=== PATIENT | female | born 1990 | race Caucasian/White ===

== ENCOUNTER 2024-10-08 12:06 | Outpatient (CLI) | payer BC, SELFPAY ==
--- NOTE | 2024-10-08 12:15 | CRLHL7_ITS ---
For Patients: As a result of the Cures Act, medical imaging exams and procedure reports are released immediately into your electronic medical record. You may view this report before your referring provider. If you have questions, please contact your health care provider. INDICATION: First trimester scan, establish dates. COMPARISON: None. TECHNIQUE: Real-time hidalgo-scale imaging of the pelvis was performed. FINDINGS: Sonographic imaging demonstrates a single living intrauterine gestation. The embryo demonstrates a regular cardiac rate measuring 167 beats per minute. The embryo`s crown-rump length measurement of 1.7 cm corresponds to a gestational age of 8 weeks 1 day with a sonographic due date of 05/19/2025. There is a normal-appearing yolk sac. There are no gross abnormalities noted within the embryo at this early state of development. The gestational sac has a normal appearance. There is no evidence of a perigestational hemorrhage. The amount of fluid within the sac appears appropriate for gestational age. The cervix is closed. The myometrium appears normal. Simple left ovarian cyst measures 3.6 x 2.3 x 3.2 cm. Corpus luteal cyst right ovary. There are no suspicious fluid collections noted in the cul-de-sac. IMPRESSION: Single living intrauterine with sonographic gestational age 8 weeks 1 day and sonographic due date 05/19/2025. Dictated by Kvng Jolly MD @ 10/09/2024 7:03:42 AM (Electronically Signed)
== END 2024-10-08 12:07 | disposition home or self-care (01) ==
PROVIDERS: Visit Provider Midwife
DX: O99.281 Endocrine, nutritional and metabolic diseases complicating pregnancy, first trimester (principal); Z3A.08 8 weeks gestation of pregnancy
CPT/HCPCS: 76817

== ENCOUNTER 2024-10-08 13:35 | Outpatient (CLI) | payer BC, SELFPAY | END 2024-10-08 13:36 | disposition home or self-care (01) | PROVIDERS: Visit Provider Midwife | DX: Z34.91 Encounter for supervision of normal pregnancy, unspecified, first trimester (principal); O99.281 Endocrine, nutritional and metabolic diseases complicating pregnancy, first trimester; Z3A.08 8 weeks gestation of pregnancy | CPT/HCPCS: 83021; 84439; 84443; 84481; 86762; 86787; 86803; 86850; 86900; 86901; 87086 ==

== ENCOUNTER 2024-11-18 12:58 | Outpatient (REF) | payer BC, SELFPAY ==
[2024-11-18 21:30] LABS: Free T4 Free Thyroxine* 1.25 ng/dL (0.70-1.85)
[2024-11-20 08:37] LABS: Free T3 3.2 pg/mL (2.5-4.3)
[2024-11-20 09:04] LABS: TSH Receptor Antibody <1.10 IU/L (<=1.75)
== END 2024-11-18 12:59 | disposition home or self-care (01) ==
LOC: NPINS 12:58
PROVIDERS: Visit Provider Student in an Organized Health Care Education/Training Program
DX: E05.90 Thyrotoxicosis, unspecified without thyrotoxic crisis or storm (principal)
CPT/HCPCS: 83520; 84436; 84439; 84443; 84481

== ENCOUNTER 2024-12-30 09:33 | Outpatient (CLI) | payer BC, SELFPAY ==
[2024-12-30 11:54] LABS: Free T4 Free Thyroxine* 0.99 ng/dL (0.70-1.85)
[2025-01-01 02:41] LABS: TSH Receptor Antibody <1.10 IU/L (<=1.75)
[2025-01-01 02:49] LABS: Free T3 2.9 pg/mL (2.5-4.3)
== END 2024-12-30 09:34 | disposition home or self-care (01) ==
LOC: NPINS 09:34
PROVIDERS: Visit Provider Student in an Organized Health Care Education/Training Program
DX: E05.90 Thyrotoxicosis, unspecified without thyrotoxic crisis or storm (principal)
CPT/HCPCS: 83520; 84436; 84439; 84443; 84481

== ENCOUNTER 2025-01-02 09:03 | Outpatient (CLI) | payer BC, SELFPAY | END 2025-01-02 09:04 | disposition home or self-care (01) | LOC: US 09:06 | PROVIDERS: Visit Provider Obstetrics & Gynecology | DX: Z34.92 Encounter for supervision of normal pregnancy, unspecified, second trimester (principal); Z3A.20 20 weeks gestation of pregnancy | CPT/HCPCS: 76805 ==

== ENCOUNTER 2025-01-02 10:58 | Outpatient (CLI) | payer BC, SELFPAY | END 2025-01-02 10:59 | disposition home or self-care (01) | PROVIDERS: Visit Provider Obstetrics & Gynecology | DX: Z34.92 Encounter for supervision of normal pregnancy, unspecified, second trimester (principal); Z3A.20 20 weeks gestation of pregnancy | CPT/HCPCS: 82565; 82570; 84156; 84450; 84460; 84520 ==

== ENCOUNTER 2025-01-06 07:42 | Outpatient (CLI) | payer BC, SELFPAY | END 2025-01-06 07:43 | disposition home or self-care (01) | LOC: NFLDREF 23:56 | PROVIDERS: Visit Provider Obstetrics & Gynecology | DX: R80.9 Proteinuria, unspecified (principal) | CPT/HCPCS: 82570; 84156 ==

== ENCOUNTER 2025-01-30 12:52 | Outpatient (CLI) | payer BC, SELFPAY ==
--- NOTE | 2025-01-30 13:00 | CRLHL7_ITS ---
For Patients: As a result of the Century Cures Act, medical imaging exams and procedure reports are released immediately into your electronic medical record. You may view this report before your referring provider. If you have questions, please contact your health care provider. INDICATION: Suboptimal heart views on survey TECHNIQUE: Conventional transabdominal two-dimensional grayscale ultrasound examination COMPARISON: survey of 01/02/2025 FINDINGS: There is a living fetus with gestational age of 24 weeks 2 days by LMP and 25 weeks 3 days by today`s measurements. EDC based on LMP is 05/20/2025. BPD: 6.2 cm, 25 weeks 1 day Head circumference: 23.2 cm, 25 weeks 2 days Abdominal circumference: 20.3 cm, 25 weeks 3 days Femur length: 4.6 cm, 25 weeks 3 days HC/AC: 1.11 The weight is estimated at 800 grams, the 87th percentile. The heart rate is measured at 149 beats per minute and the rhythm appears regular. The heart and ventricular outflow tracts are visualized today and appears to be within normal limits. The amniotic fluid volume is within normal limits with single deepest pocket of 7.1 cm. The placenta is posterior with no evidence of previa. IMPRESSION: 1. Living fetus with gestational age of 24 weeks 2 days by LMP and 25 weeks 3 days by today`s measurements. EDC based on LMP is 05/20/2025. 2. heart and ventricular outflow tracts visualized and appear to be within normal limits. Dictated by Pillo Govea MD @ 02/01/2025 9:18:02 AM (Electronically Signed)
== END 2025-01-30 12:53 | disposition home or self-care (01) ==
LOC: US 12:53
PROVIDERS: Visit Provider Obstetrics & Gynecology
DX: O28.3 Abnormal ultrasonic finding on antenatal screening of mother (principal); Z3A.24 24 weeks gestation of pregnancy
CPT/HCPCS: 76816

== ENCOUNTER 2025-02-10 09:28 | Outpatient (CLI) | payer BC, SELFPAY ==
[2025-02-10 11:39] LABS: Free T4 Free Thyroxine* 0.92 ng/dL (0.70-1.85)
[2025-02-11 12:55] LABS: TSH Receptor Antibody <1.10 IU/L (<=1.75)
[2025-02-11 12:57] LABS: Free T3 2.4 pg/mL (2.5-4.3)
== END 2025-02-10 09:29 | disposition home or self-care (01) ==
LOC: NPINS 09:29
PROVIDERS: Visit Provider Student in an Organized Health Care Education/Training Program
DX: E05.90 Thyrotoxicosis, unspecified without thyrotoxic crisis or storm (principal)
CPT/HCPCS: 83520; 84436; 84439; 84443; 84481

== ENCOUNTER 2025-02-14 13:51 | Outpatient (CLI) | payer BC, SELFPAY ==
[2025-02-14] VITALS (15 sets, daily range): BP systolic 114–157; BP diastolic 68–88; PULSE 94–121; RESP 18; TEMP 36.9; O2SAT 97–98
[2025-02-14 14:19] LABS: Hematocrit 34.3 % (33.0-51.0); Hemoglobin* 11.5 gm/dL (12.0-16.0); Mean Corpuscular HGB Conc 34 gm/dL (32-36); Mean Corpuscular Hemoglobin 31 pg (26-34); Mean Corpuscular Volume 92 fL (80-100); Platelet Count* 303 K/uL (140-440); Red Blood Count 3.73 m/uL (4.00-5.20); White Blood Count* 10.97 K/uL (4.50-11.00)
[2025-02-14 14:20] LABS: Slide Review Reflex No
[2025-02-14 14:32] LABS: Alanine Aminotransferase* 18 U/L (4-35); Aspartate Amino Transferase* 25 U/L (12-35); Blood Urea Nitrogen* 12 mg/dL (5-24); Creatinine* 0.5 mg/dL (0.5-1.5); Estimated Glomerular Filt Rate 126 ml/min
--- NOTE | 2025-02-14 16:13 | PC.OBNST ---
NST Note NST Note Start: 02/14/25 13:59 Freq: ONCE Status: Active Protocol: Document 02/14/25 16:10 MMB (Rec: 02/14/25 16:11 MMB [id number]) NST Note 1 Para (# of births) 0 EDC 05/20/25 Gestational Age In Weeks & Days 26 Weeks & 3 Days Patient Presented with Complaint(s) of Other Other Complaints High BP at home. Reactive Yes Appropriate for Gestational Age Yes RN Mellissa Champagne Date 02/14/25 Reactive Yes Appropriate for Gestational Age Yes RN Maldonado Myers RN Date 02/14/25 OB NST charge Yes Complete NST Note via Write Note Yes The provider's electronic signature indicates the NST is reactive/appropriate for gestational age. *Note to provider: If an addendum is required, open the patient's chart and click on the note under the Nurse/Allied Health tab.
--- NOTE | 2025-02-14 16:43 | P.OBO_ITS ---
OB Outpatient HPI History of Present Illness Date Seen: 02/14/25 History of Present Illness: 34 year old at 26 3/7 weeks gestation by LMP, SADA 05/20/25 , presents with concerns about elevated blood pressure at home. Patient has been monitoring blood pressures at home and called clinic with concerns of significantly elevated blood pressures with systolics in the 150s and stating that she was told that if monitoring at home started to be abnormal that we would start her on oral antihypertensive medication. Patient was asked to come in for evaluation. Patient today denies headaches, vision changes, pain in her upper abdomen. Denies persistent tachycardia, SOB, chest pain. Baby moving naturally: Yes Bleeding: No Contractions: No Leaking fluid: No Discharge: No Heartburn: No Back pain: No Meds Home Medications and Allergies Home Medications ?Medication ?Instructions ?Recorded ?Confirmed ?Type ascorbic acid (vitamin C) 500 mg mg PO BID 10/08/24 01/30/25 History capsule inositol 650 mg tablet mg PO 10/08/24 01/30/25 History lecithin, soy 400 mg capsule 1,200 mg PO QDAY 10/08/24 02/14/25 History omega 2-bfe-gtr-fish oil 900 cap PO 10/08/24 01/30/25 History mg-1,400 mg capsule,delayed release (Fish Oil) vitamin#30 30 mg iron-10 1 cap PO DAILY 10/08/24 02/14/25 History mg iron-folic acid 1 mg-omg3 capsule selenium 200 mcg capsule 200 mcg PO QDAY 10/08/24 02/14/25 History aspirin 81 mg tablet,delayed 81 mg PO QDAY 01/14/25 02/14/25 History release magnesium glycinate 100 mg (as 100 mg PO BID 01/14/25 02/14/25 History glycinate) tablet Diego Prather 02/14/25 History calcium citrate 1,000 mg tablet 1,000 mg PO DAILY 02/14/25 02/14/25 History Allergies Allergy/AdvReac Type Severity Reaction Status Date / Time gluten Allergy Intermediate Unknown Verified 01/30/25 13:52 [facility] Medical History Profound vision impairment, 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 - Blindness, one eye, unspecified eye (ICD-10) Graves disease ?E05.00 - Thyrotoxicosis with diffuse goiter without thyrotoxic crisis or st orm (ICD-10) Hyperthyroidism ?E05.90 - Thyrotoxicosis, unspecified without thyrotoxic crisis or storm (ICD-10) Surgical History H/O eye surgery ?Z98.890 - Other specified postprocedural states (ICD-10) Family History Father Bladder cancer Mother Hypothyroid Social History What is your current living situation?: I presently have a place to live Problems where you live: no known problems In the past 12 months, utilities in danger of being shut off: no How hard is it for you to pay for the very basics like food, housing, medical care, and heating: not very hard In the past 12 mos, have been you worried that your food would run out before you had money to buy more?: never true In the past 12 mos, the food you bought just didn't last and you didn't have money to buy more?: never true Are you following a diet prescribed by a doctor: Yes Are you following a special diet: Yes Do you want help finding or keeping work or a job: I do not need or want help Smoking Status: Never smoker How often does anyone, including family, friends and others, physically hurt you : never How often does anyone, including family, friends and others, insult or talk down to you: never How often does anyone, including family, friends and others, threaten you with harm: never How often does anyone, including family, friends and others, scream or curse at you: never History History 1 Elective abortions Para 0 Spontaneous abortions Hx # Term Pregnancies Ectopic pregnancies Hx # Pregnancies Multiple births Number of Living Children 0 OB - H&P: Exam Physical Exam Vital signs: Temp Pulse Resp BP Pulse Ox 98.5 F 94 18 130/77 98 02/14/25 13:45 02/14/25 15:32 02/14/25 13:45 02/14/25 15:32 02/14/25 14:13 Narrative: VITAL SIGNS: As noted above. GENERAL APPEARANCE: Alert, cooperative female in no acute distress. MOOD & AFFECT: Normal. HEART: Regular rate and rhythm without murmurs. LUNGS: Lungs are clear to auscultation bilaterally. No crackles, wheezes, or rhonchi. ABDOMEN: Gravid, non tender. EXTREMITIES: Nonedematous. Well perfused. Nontender. NEURO: Intact. Labs Labs Laboratory Tests 02/14/25 Range/Units 14:11 WBC 10.97 (4.50-11.00) K/uL RBC 3.73 L (4.00-5.20) m/uL Hgb 11.5 L (12.0-16.0) gm/dL Hct 34.3 (33.0-51.0) % MCV 92 (80-100) fL MCH 31 (26-34) pg MCHC 34 (32-36) gm/dL Plt Count 303 (140-440) K/uL BUN 12 (5-24) mg/dL Creatinine 0.5 (0.5-1.5) mg/dL Estimated GFR 126 ml/min AST 25 (12-35) U/L ALT 18 (4-35) U/L Assessment and Plan Assessment and plan (1) Chronic hypertension affecting : Status: Acute Plan Initial blood pressure 157/88, 143/77 that eventually started to decrease after rest. After review of chart patient with elevated BP prior to 20 weeks. Patient also with history of Grave's that has been established to be in remission, has been monitoring thyroid function tests and these have remained stable. Endocrinology has not recommended medication therapy based of her lab values. Patient completed thyroid labs most recently on 02/10/25. Patient also with evidence of proteinuria at the beginning of . In the setting of stable thyroid function, evidence of elevated BP prior to 20 weeks and early diagnosis of proteinuria I favor a diagnosis of CHTN. Preeclampsia labs completed today and normal, monitoring also appropriate for gestational age. Discussed the difference between CHTN, GHTN and preeclampsia diagnosis. Patient is not in agreement with a CHTN diagnosis as she routinely would monitor her BPs at home- prior to and those would always be normal. She does feel most comfortable if she can have medication for blood pressure at home, just in case monitoring shows severely elevated blood pressures again. I did plan to prescribe medication as I had reviewed her chart prior to talking to patient and believed that CHTN would be the most appropriate diagnosis. No matter the diagnosis, we discussed the importance of continued monitoring of BPs at home, at least twice a day. Discussed that even if she is taking medication if her blood pressures are more than 150 systolics, or 100 diastolics that she needs to come in for evaluation of health and lab work. Discussed that lab work is collected to rule out any end organ damage. I did order Nifedipine ER 30mg daily. Discussed most common side effects. I thought of ordering a beta mary as she has been noted to be tachycardic, but it seems like this is not persistent and states that her usual baseline HR at home is in the 80s. I recommend for her to be seen next week to follow up on BP and make a final plan for continued monitoring and delivery.
== END 2025-02-14 16:00 | disposition home or self-care (01) ==
LOC: OB OUT 13:52 → OB 13:53
PROVIDERS: Visit Provider Obstetrics & Gynecology
DX: O10.912 Unspecified pre-existing hypertension complicating pregnancy, second trimester (principal); Z3A.26 26 weeks gestation of pregnancy
CPT/HCPCS: 36415; 59025; 82565; 84450; 84460; 84520; 85027; G0463

== ENCOUNTER 2025-02-20 09:24 | Outpatient (CLI) | payer BC, SELFPAY | END 2025-02-20 09:25 | disposition home or self-care (01) | LOC: NFLDREF 02-24 00:11 | PROVIDERS: Visit Provider Internal Medicine Nephrology | DX: O13.2 Gestational [pregnancy-induced] hypertension without significant proteinuria, second trimester (principal); Z3A.36 36 weeks gestation of pregnancy | CPT/HCPCS: 82570; 84156 ==

== ENCOUNTER 2025-02-26 09:20 | Outpatient (CLI) | payer BC, SELFPAY | END 2025-02-26 09:21 | disposition home or self-care (01) | LOC: NFLDREF 02-27 22:41 | PROVIDERS: Visit Provider Obstetrics & Gynecology | DX: O99.283 Endocrine, nutritional and metabolic diseases complicating pregnancy, third trimester (principal); E05.90 Thyrotoxicosis, unspecified without thyrotoxic crisis or storm; Z3A.28 28 weeks gestation of pregnancy | CPT/HCPCS: 82570; 84156; 84439; 84443; 84481; 86592 ==

== ENCOUNTER 2025-03-26 12:07 | Outpatient (CLI) | payer BC, SELFPAY | END 2025-03-26 12:08 | disposition home or self-care (01) | LOC: NFLDREF 04-02 03:15 | PROVIDERS: Visit Provider Obstetrics & Gynecology | DX: O10.913 Unspecified pre-existing hypertension complicating pregnancy, third trimester (principal); O12.13 Gestational proteinuria, third trimester; Z3A.32 32 weeks gestation of pregnancy | CPT/HCPCS: 82565; 82570; 84156; 84450; 84460; 84520 ==

== ENCOUNTER 2025-03-26 12:12 | Outpatient (CLI) | payer BC, SELFPAY ==
--- NOTE | 2025-03-26 12:15 | CRLHL7_ITS ---
For Patients: As a result of the Century Cures Act, medical imaging exams and procedure reports are released immediately into your electronic medical record. You may view this report before your referring provider. If you have questions, please contact your health care provider. 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 COMPARISON: 01/30/2025, 01/02/2025, 10/08/2024. TECHNIQUE: Ultrasound OB pelvis transabdominal. Real-time grayscale imaging of the pelvis was performed.? FINDINGS: SADA by LMP: 05/20/2025. GA: 32 weeks 1 day. Gestation: Single. CERVIX: Not visualized. POSITIONING: Vertex. AMNIOTIC FLUID: 6.2 cm SDP. PLACENTA: Technique: TA. Placenta Location: Posterior. DOPPLERS: Heart Rate: 152 bpm. BIOPHYSICAL PROFILE: Gross Body Movements: 2 Tone: 2 Respiratory Activity: 2 Amniotic Fluid SDP: 2 Total Score: 8/8 BIOMETRY: BPD: 8.1 cm, 32 weeks 3 days. 49.6% HC: 30.5 cm, 33 weeks 6 days. 61.4% AC: 28.5 cm, 32 weeks 4 days. 60.0% FL: 6.5 cm, 33 weeks 2 days. 701.% FL/AC Ratio: 22.68% HC/AC Ratio: 1.07. EFW: 2072 grams, 4 lb 9 oz. Age by this US: 33 weeks 0 days. SADA by this US: 05/14/2025. Percentile by SADA: 63.9% IMPRESSION: 1. Normal biophysical profile score of 8/8. 2. Sonographic gestational age 33 weeks 0 days and sonographic due date 05/14/2025. Sonographic age 6 days ahead of the clinical age. 3. Estimated weight 64th percentile. Abdominal circumference 60th percentile. Kvng Jolly M.D. Diagnostic Radiologist [email or web address] Transcribed: 1:25 pm DW/Dictated by: Kvng Jolly MD @ 03/26/2025 1:16:00 PM (Electronically Signed)
== END 2025-03-26 12:13 | disposition home or self-care (01) ==
LOC: US 12:13
PROVIDERS: Visit Provider Obstetrics & Gynecology
DX: O26.893 Other specified pregnancy related conditions, third trimester (principal); D71 Functional disorders of polymorphonuclear neutrophils; Z3A.32 32 weeks gestation of pregnancy; O10.919 Unspecified pre-existing hypertension complicating pregnancy, unspecified trimester; O12.10 Gestational proteinuria, unspecified trimester
CPT/HCPCS: 76816; 76819

== ENCOUNTER 2025-04-03 10:03 | Outpatient (CLI) | payer BC, SELFPAY | END 2025-04-03 10:04 | disposition home or self-care (01) | LOC: NFLDREF 04-06 14:19 | PROVIDERS: Visit Provider Obstetrics & Gynecology | DX: O10.913 Unspecified pre-existing hypertension complicating pregnancy, third trimester (principal); O12.13 Gestational proteinuria, third trimester; Z3A.33 33 weeks gestation of pregnancy | CPT/HCPCS: 82565; 82570; 84156; 84450; 84460; 84520 ==

== ENCOUNTER 2025-04-03 10:10 | Outpatient (CLI) | payer BC, SELFPAY ==
--- NOTE | 2025-04-03 10:15 | CRLHL7_ITS ---
For Patients: As a result of the Cures Act, medical imaging exams and procedure reports are released immediately into your electronic medical record. You may view this report before your referring provider. If you have questions, please contact your health care provider. OB ULTRASOUND BIOPHYSICAL PROFILE, 04/03/2025 CLINICAL HISTORY: Chronic HTN. COMPARISON: 03/26/2025, 01/30/2025, 01/02/2025. TECHNIQUE: Real time hidalgo scale imaging of the fetus was performed. Transabdominal imaging performed. FINDINGS: LMP: 08/13/2024. SADA by LMP: 05/20/2025. GA: 33 weeks 2 days. GESTATION: Single. CERVIX: Not visualized. AMNIOTIC FLUID: 4.7 cm SDP. BIOPHYSICAL PROFILE: Gross Body Movements: 2 Tone: 2 Respiratory Activity: 2 Amniotic Fluid: 2 Total Score: 8/8 PLACENTA: Technique: TA. Placenta Position: Posterior DOPPLERS: Heart Rate: 147 bpm. IMPRESSION: Normal biophysical profile score 8/8. Kvng Jolly M.D. Diagnostic Radiologist [email or web address] Transcribed: 11:02 am DW/Dictated by: Kvng Jolly MD @ 04/03/2025 10:54:00 AM (Electronically Signed)
== END 2025-04-03 10:11 | disposition home or self-care (01) ==
LOC: US 10:11
PROVIDERS: Visit Provider Obstetrics & Gynecology
DX: O10.913 Unspecified pre-existing hypertension complicating pregnancy, third trimester (principal); Z3A.33 33 weeks gestation of pregnancy
CPT/HCPCS: 76819

== ENCOUNTER 2025-04-03 11:19 | Outpatient (CLI) | payer BC, SELFPAY ==
[2025-04-03] VITALS (9 sets, daily range): BP systolic 121–162; BP diastolic 63–81; PULSE 103–129; O2SAT 97
--- NOTE | 2025-04-03 14:22 | PC.OBNST ---
NST Note NST Note Start: 04/03/25 11:27 Freq: ONCE Status: Active Protocol: Document 04/03/25 14:21 BAW (Rec: 04/03/25 14:22 BAW No Response) NST Note 1 Para (# of births) 0 EDC 05/20/25 Gestational Age In 33 Weeks & 2 Days Weeks & Days High Risk Factors High Blood Pressure - Preexisting Patient Presented Other with Complaint(s) of Other Complaints Elevated BP in clinic Reactive Yes Appropriate for Yes Gestational Age LEAH Moody RN Date 04/03/25 Reactive Yes Appropriate for Yes Gestational Age LEAH Bar RN Date 04/03/25 OB NST charge Yes Complete NST Note Yes via Write Note The provider's electronic signature indicates the NST is reactive/appropriate for gestational age. *Note to provider: If an addendum is required, open the patient's chart and click on the note under the Nurse/Allied Health tab.
== END 2025-04-03 13:39 | disposition home or self-care (01) ==
LOC: OB CLI 11:21 → OB 11:23
PROVIDERS: Visit Provider Obstetrics & Gynecology
DX: O10.913 Unspecified pre-existing hypertension complicating pregnancy, third trimester (principal); Z3A.33 33 weeks gestation of pregnancy; O12.10 Gestational proteinuria, unspecified trimester
CPT/HCPCS: 59025; G0463

== ENCOUNTER 2025-04-10 07:11 | Outpatient (CLI) | payer BC, SELFPAY ==
--- NOTE | 2025-04-10 07:15 | CRLHL7_ITS ---
For Patients: As a result of the Century Cures Act, medical imaging exams and procedure reports are released immediately into your electronic medical record. You may view this report before your referring provider. If you have questions, please contact your health care provider. INDICATION: Chronic hypertension TECHNIQUE: Ultrasound OB pelvis transabdominal. Real-time hidalgo-scale imaging of the fetus was performed with color Doppler and spectral Doppler analysis of the umbilical artery without stress testing. COMPARISON: 04/03/2025 FINDINGS: Sonographic imaging demonstrates a single living intrauterine gestation. Fetus demonstrates a regular cardiac rate of 163 beats per minute. Fetus has a cephalic orientation. The placenta lies posterior. Amniotic fluid volume appears normal with a MVP of 6.5 cm. breathing movements, motion, and tone were all observed. IMPRESSION: Single viable intrauterine with a biophysical profile 06/13. Dictated by Beck Nash MD @ 04/10/2025 9:53:29 AM (Electronically Signed)
== END 2025-04-10 07:12 | disposition home or self-care (01) ==
LOC: US 07:12
PROVIDERS: Visit Provider Obstetrics & Gynecology
DX: O10.919 Unspecified pre-existing hypertension complicating pregnancy, unspecified trimester (principal)
CPT/HCPCS: 76819

== ENCOUNTER 2025-04-10 07:56 | Outpatient (CLI) | payer BC, SELFPAY | END 2025-04-10 07:57 | disposition home or self-care (01) | LOC: NFLDREF 04-12 04:03 | PROVIDERS: Visit Provider Obstetrics & Gynecology | DX: O10.913 Unspecified pre-existing hypertension complicating pregnancy, third trimester (principal); O12.13 Gestational proteinuria, third trimester; Z3A.34 34 weeks gestation of pregnancy | CPT/HCPCS: 82565; 82570; 84156; 84450; 84460; 84520 ==

== ENCOUNTER 2025-04-17 12:12 | Outpatient (CLI) | payer BC, SELFPAY ==
--- NOTE | 2025-04-17 12:15 | CRLHL7_ITS ---
For Patients: As a result of the Century Cures Act, medical imaging exams and procedure reports are released immediately into your electronic medical record. You may view this report before your referring provider. If you have questions, please contact your health care provider. INDICATION: Chronic hypertension TECHNIQUE: Ultrasound OB pelvis transabdominal. Real-time hidalgo-scale imaging of the fetus was performed with color Doppler and spectral Doppler analysis of the umbilical artery without stress testing. COMPARISON: 04/10/2025 FINDINGS: Sonographic imaging demonstrates a single living intrauterine gestation. Fetus demonstrates a regular cardiac rate of 152 beats per minute. Fetus has a cephalic orientation. The placenta lies posterior. Amniotic fluid volume appears normal with a MVP of 4.7 cm. breathing movements, motion, and tone were all observed. IMPRESSION: Single viable intrauterine with a biophysical profile 06/13. Dictated by Beck Nash MD @ 04/17/2025 1:23:49 PM (Electronically Signed)
== END 2025-04-17 12:13 | disposition home or self-care (01) ==
LOC: US 12:12
PROVIDERS: Visit Provider Obstetrics & Gynecology
DX: O10.919 Unspecified pre-existing hypertension complicating pregnancy, unspecified trimester (principal)
CPT/HCPCS: 76819; 82565; 82570; 84156; 84450; 84460; 84520

== ENCOUNTER 2025-04-22 09:45 | Outpatient (CLI) | payer BC, SELFPAY | END 2025-04-22 09:46 | disposition home or self-care (01) | LOC: NFLDREF 04-25 09:55 | PROVIDERS: Visit Provider Obstetrics & Gynecology | DX: O10.919 Unspecified pre-existing hypertension complicating pregnancy, unspecified trimester (principal); O12.10 Gestational proteinuria, unspecified trimester | CPT/HCPCS: 82570; 84156 ==

== ENCOUNTER 2025-04-24 10:13 | Outpatient (CLI) | payer BC, SELFPAY ==
--- NOTE | 2025-04-24 10:15 | CRLHL7_ITS ---
For Patients: As a result of the Century Cures Act, medical imaging exams and procedure reports are released immediately into your electronic medical record. You may view this report before your referring provider. If you have questions, please contact your health care provider. OB ULTRASOUND LMP: 08/13/2024. SADA by LMP: 05/20/2025. GA: 36 w, 2 d. Single. Comparison: 04/17/2025, 04/10/2025, 04/03/2025, 03/26/2025. INDICATION: CHTN. TECHNIQUE: Real time grayscale imaging of the fetus was performed. Transabdominal. CERVIX: Not visualized. POSITIONING: Vertex. AMNIOTIC FLUID: 6.2 cm. SDP (N: greater than 2 x 1 cm) BIOPHYSICAL PROFILE: 2: Gross body movements 2: tone 2: Respiratory activity 2: Amniotic fluid SDP (N: greater than 2 x 1 cm) 06/13: Total score PLACENTA: Technique: Transabdominal. PLACENTA POSITION: Posterior. DOPPLER: heart rate: 155 bpm. BIOMETRY: BPD: 8.9 cm. 35 w, 6 d, 49.6 percent. HC: 33.0 cm. 37 w, 4 d, 51.5 percent. AC: 32.3 cm. 36 w, 2 d, 59.4 percent. FL: 7.2 cm. 37 w, 0 d, 67.1 percent. FL/AC ratio: 22.41 percent. HC/AC ratio: 1.02. EFW: 2967 g. Weight: 6 lbs, 9 oz. age by this US: 36 w, 5 d. SADA by this US: 05/17/2025. Percentile by SADA: 59.9 percent. IMPRESSION: 1. Normal biophysical profile score 8/8. 2. Sonographic gestational age 36 weeks 5 days and sonographic due date 05/17/2025. Good correlation with dates. Normal interval growth. 3. Estimated weight 60th percentile. Abdominal circumference 59th percentile. Kvng Jolly M.D. Diagnostic Radiologist [email or web address] ELIJAH/rosemary riley/Dictated by: Kvng Jolly MD @ 04/24/2025 11:49:00 AM (Electronically Signed)
== END 2025-04-24 10:14 | disposition home or self-care (01) ==
LOC: US 10:14
PROVIDERS: Visit Provider Obstetrics & Gynecology
DX: O10.913 Unspecified pre-existing hypertension complicating pregnancy, third trimester (principal); Z3A.36 36 weeks gestation of pregnancy
CPT/HCPCS: 76816; 76819

== ENCOUNTER 2025-04-24 11:59 | Outpatient (CLI) | payer BC, SELFPAY ==
[2025-04-25 11:16] LABS: Strep B DNA Probe Negative (Negative)
[2025-04-25 11:26] LABS: Strep B Susceptibility Needed? No
== END 2025-04-24 12:00 | disposition home or self-care (01) ==
LOC: NFLDREF 12:00
PROVIDERS: Visit Provider Obstetrics & Gynecology
DX: O10.913 Unspecified pre-existing hypertension complicating pregnancy, third trimester (principal); Z3A.36 36 weeks gestation of pregnancy
CPT/HCPCS: 76816; 76819; 82565; 83520; 84436; 84439; 84443; 84450; 84460; 84481; 84520; 87081; 87653

== ENCOUNTER 2025-04-25 08:17 | Outpatient (CLI) | payer BC, SELFPAY | END 2025-04-25 08:18 | disposition home or self-care (01) | LOC: NFLDREF 08:18 | PROVIDERS: Visit Provider Obstetrics & Gynecology | DX: O10.913 Unspecified pre-existing hypertension complicating pregnancy, third trimester (principal); Z3A.36 36 weeks gestation of pregnancy | CPT/HCPCS: 82565; 82570; 84156; 84450; 84460; 84520 ==

== ENCOUNTER 2025-05-01 10:37 | Outpatient (CLI) | payer BC, SELFPAY ==
--- NOTE | 2025-05-01 10:45 | CRLHL7_ITS ---
For Patients: As a result of the Cures Act, medical imaging exams and procedure reports are released immediately into your electronic medical record. You may view this report before your referring provider. If you have questions, please contact your health care provider. OB ULTRASOUND LMP: 08/13/2024. SADA by LMP: 08/27/2024. GA: 37 w, 2 d. Single. INDICATION: Chronic HTN. TECHNIQUE: Real time grayscale imaging of the fetus was performed. Transabdominal. CERVIX: Not visualized. POSITIONING: Vertex. AMNIOTIC FLUID: 6.2 cm. SDP (N: greater than 2 x 1 cm) BIOPHYSICAL PROFILE: 2: Gross body movements 2: tone 0: Respiratory activity 2: Amniotic fluid SDP (N: greater than 2 x 1 cm) 6/8: Total score PLACENTA: Technique: Transabdominal. PLACENTA POSITION: Posterior. DOPPLER: heart rate: 159 bpm. IMPRESSION: Biophysical profile score 6/8. Incomplete respiratory activity noted. Kvng Jolly M.D. Diagnostic Radiologist [email or web address] ELIJAH/rosemary riley/Dictated by: Kvng Jolly MD @ 05/01/2025 3:58:00 PM (Electronically Signed)
--- OUTSIDE RECORDS SUMMARY | 2025-05-02 01:10 | XMS_ITS | Clinical Summary ---
Author Organization [facility] Address [address] [place] [id number] Care Team Providers Care Ag Equipment Field Service Technician Name Role Phone Kaitlynn Morales MD Primary Care Provider Rancho Humphreys MD Unavailable [phone] Allergies No known active allergies Medications propylthiouraci L 50 mg tabletIndicatio ns:Hyperthyroid ism Take 3 Tablets (150 mg) by mouth two times daily. 180 Tablet 3 01/06/2023 Active Active Problems Problem Noted Date Diagnosed Date Hyperthyroidism 04/07/2023 Overview (04/07/2023): 01/06/23 started PTU Latest Reference Range & Units 01/03/23 12:59 01/06/23 13:20 02/03/23 13:35 04/06/23 10:05 TSH 0.27 - 4.20 uIU/mL 3.58 T4,FREE 0.93 - 1.70 ng/dL 0.74 (L) T4Free(Direct) 0.82 - 1.77 ng/dL 1.87 (H) T3,TOTAL 85 - 202 ng/dL 113 TSI 0.00 - 0.55 IU/L 5.74 (H) T3 Triiodothyronine 71 - 180 ng/dL 438 (H) TSH 0.450 - 4.500 uIU/mL <0.005 (L) <0.005 (L) (L): Data is abnormally low (H): Data is abnormally high 04/07/23- stop PTU- Latest Reference Range & Units 02/03/23 13:35 04/06/23 10:05 ALT (SGPT) 10 - 35 IU/L 24 272 (H) (H): Data is abnormally high Immunization not carried out because of patient decision 09/20/2013 Routine general medical exam ination at a health care facility 09/21/2012 Family History Medical History Relation Name Comments Good Health Brother 2 Jericho Good Health Father Thyroid Disease Mother hypothyroid Good Health Sister 4 Mady Good Health Sister 5 Cristina Good Health Sister 6 Yola Relation Name Status Comments Brother 1 Alive Brother 2 Jericho Father Alive Mother Alive Sister 1 Alive Sister 2 Alive Sister 3 Alive Sister 4 Mady Sister 5 Cristina Sister 6 Yola Social History Tobacco Use Types Packs/Day Years Used Date Smoking Tobacco: Never Smokeless Tobacco: Never Alcohol Use Standard Drinks/Week Comments Yes 0 (1 standard drink = 0.6 oz pur e alcohol) occasional glass of wine PHQ-2 Answer Date Recorded PHQ-2 TOTAL SCORE 0 09/01/2021 Social Connections Answer Date Recorded Frequency of Communication with Friends and Fami ly Not on file 01/05/2024 Financial Resource Strain Answer Date R ecorded Difficulty of Paying Living Expenses 3 12/30/2022 Difficulty of Paying Living Expenses Not on file 12/30/2022 Food Insecurity Answer Date Recorded Worried About Running Out of Food in the Last Ye ar 1 12/30/2022 Transportation Needs Answer Date Record ed Lack of Transportation (Medical) 1 12/30/2022 Housing Stability Answer Date Recorded Unable to Pay for Housing in the Last Year 1 12/30/2022 Comments No Sex and Gender Information Value Date Recorded Sex Assigned at Not on file Legal Sex Female 7:01 AM DENT REMOVER Gender Identity Not on file Sexual Orientation Not on file Obstetrics History Last Filed Vital Signs Vital Sign Reading Time Taken Comments Blood Pressure 136/74 02/03/2023 12:54 PM CDT Pulse 98 02/03/2023 12:54 PM CDT Temperature - - Respiratory Rate 12 02/03/2023 12:54 PM CDT Oxygen Saturation 99% 01/03/2023 12:10 PM DENT REMOVER Inhaled Oxygen Concentration - - Weight 65.3 kg (144 lb) 02/03/2023 12:54 PM CDT Height 161.7 cm (5' 3.66) 08/31/2021 10:27 AM C DT Body Mass Index 24.98 08/31/2021 10:27 AM CDT Plan of Treatment Health Maintenance Due Date Last Done Comments Tdap 2001 HIV for age 15-65 2005 Hepatitis C screening for age 18-79 2008 Hepatitis B series for 19+ (1 of 3 - 19+ 3-dose series) 2009 Tetanus booster 2010 BMI (ht and wt on same day) for age 18+ 08/31/2022 08/31/2021 Depression screening for age 12+ 08/31/2022 08/31/2021 COVID-19 vaccine series (2023- season) 2024 Influenza Vaccine (Season Ended) 2025 Pap test for age 21-65 08/31/2026 , 08/31/2021, 09/20/2013, Additional history exists Pneumococcal series for age 6-49 Aged Out No longer eligible based on patient's age to complete this topic Procedures Procedure Name Priority Date/Time Associated Diagnosis Comments CAD CAM PROGRAMMER THIN PREP PAP SCREEN IMAGED Routine 08/31/2021 10:51 AM CDT Cervical cancer screening from Last 3 Months or Most Recently Relevant to Health Maintenance Results * CAD CAM PROGRAMMER THIN PREP PAP SCREEN IMAGED (08/31/2021 10:51 AM CDT) Case Report Gynecologic Cytology Report Case: [id number] Authorizing Provider: Kaitlynn Morales, Collected: 08/31/2021 1051 Ordering Location: [facility] Received: 08/31/2021 1123 Clinic First Screen: Beck White Specimen: CAD CAM PROGRAMMER ThinPrep Vial Screening, Cervical 09/13/2021 3:13 PM DENT REMOVER [facility] INTERPRETATION/ RESULT NEGATIVE FOR INTRAEPITHELIAL LESION OR MALIGNANCY (NIL) (none) 09/13/2021 3:13 PM DENT REMOVER [facility] at 1513 DENT REMOVER SPECIMEN ADEQUACY Satisfactory for evaluation No endocervical component seen 09/13/2021 3:13 PM DENT REMOVER [facility] HPV REQUEST HPV and PAP 09/13/2021 3:13 PM DENT REMOVER [facility] Date of LMP 07/08/21 09/13/2021 3:13 PM DENT REMOVER [facility] Last Pap Date 09/20/2013 09/13/2021 3:13 PM DENT REMOVER [facility] Last Pap Result NIL 3:13 PM DENT REMOVER [facility] Abnormal Pap or [place] Bx in last 5 years No 09/13/2021 3:13 PM DENT REMOVER [facility] Menstrual Status Regular Periods 09/13/2021 3:[address] [facility] [place] Bx Done Today No 09/13/2021 3:13 PM DENT REMOVER [facility] Additional Information None given 09/13/2021 3:13 PM DENT REMOVER [facility] Comment: Cytology is screened at [facility] - [address], [place] [address] and [facility] - [address] [place] [place] [address] and [facility] - [address] [place] [address] Interpreted at [facility], [facility] Laboratory - [address], [place] [address] Automated Review Successful 09/13/2021 3:13 PM [facility] Comment:Specimen processed s uccessfully by automated collar feller device, ThinPrep Imaging System, [employer] ANCILLARY TESTING CAD CAM PROGRAMMER HPV Ordered, Please see separate report 09/13/2021 3:[address] [facility] Note The pap test is a screening technique, not a diagnostic procedure. It is used primarily to screen for squamous cancers and precursor lesions. Published studies have shown that it is subject to both false negative and false positive results. The pap test should not be used as the sole means to diagnose or exclude pre-malignant and malignant lesions. 09/13/2021 3:[address] [facility] Other (Cervical) Non-Blood / Unknown 08/31/2021 10:51 AM CDT 08/31/2021 11:23 AM CDT Kaitlynn Morales MD PATHOLOGY/CYTOLOGY Fin al Result [facility] [address] [place] [address], [place] from Last 3 Months or Most Recently Relevant to Health Maintenance Insurance [facility] [place] [id number] Care Teams Ag Equipment Field Service Technician Relationship Specialty Start Date End Date Kaitlynn Morales MD PCP - General 10/12/09 Rancho Humphreys MD [address] [facility] [address] [facility] [address] [place] [address] Endocrinology Endocrinology 02/03/23
--- OUTSIDE RECORDS SUMMARY | 2025-05-02 01:10 | XMS_ITS | Patient Health Record ---
Author Organization [facility] Address [address] [place] [address] Care Team Providers Care Gis Manager Name Role Phone Kaitlynn oMrales Primary Care Provider Anais Hernandez [phone] Allergies No Known Allergies Reason For Referral No Information Medications Medication SIG (Take, Route, Frequency, Duration) Notes Start Date End Date Status Ashwagandha 600mg Active Vitamin C 1000mg Active Organ-I NR Body health 4 capsules 1xday Active Calcium 1200mg Active Probiotic 2 capsules 1xday Act mushtaq Herbal Expec Thyroid 2 tinctu re 2 droppers 3xday Active Bauxite 15mg Active Multi Vitamin 1 pill 2xday Act mushtaq Magnesium Glycinate 480mg Active Inositol powder Active Fish Oil 1900mg Active Social History Tobacco Use: Social History Observation Description Date Details (start date - stop date) Never Smoker NA - NA Tobacco Use/Smoking Question Answer Notes Are you a nonsmoker Alcohol Screen (Audit-C) Question Answer Notes Did you have a drink contain ing alcohol in the past year? Yes How often did you have a dri nk containing alcohol in the past year? Monthly or less (1 point) How many drinks did you have on a typical day when you were drinking in the past year? 1 or 2 drinks (0 point) Points 1 Interpretation Negative Problems Problem Type SNOMED Code ICD Code Onset Dates Problem Status W/U Status Risk Notes Problem [id number] Graves disease (E05.00) Active confirmed Plan Of Treatment No Information Insurance Providers Payer Name Payer Address Payer Phone Subscriber Number Group Number Insured Name Patient Relationship to Insured Coverage Start Date [facility]age End Date [facility] [address] [place] [id number] Inga Hodge Self - patient is the insured Medical (General) History Medical History History ICD Code hyperthyroidism graves disease Surgical History Surgery Date(Month/Year) 3 eye surgeries Hospitalization History Reason Date(Month/Year) surgery
--- OUTSIDE RECORDS SUMMARY | 2025-05-02 01:10 | XMS_ITS | Clinical Summary ---
Author Organization [facility] Address [address], [place] [address] Care Team Providers Care Geospatial Program Management Officer Name Role Phone Unassigned, Provider Primary Care Provider Unava ilable Source Comments You are receiving this document as you are listed as the primary care provider,follow-up provider, or the patient has been referred to you for consultation.This is in compliance with the Medicare andMedicaid EHR Incentive Program,which states Providers who transition their patient to another setting of careor provider of care or refers their patient to another provider of care shouldprovide summary care record for each transition of care or referral. [facility] Medications No known medications Active Problems No known active problems Encounters Date Type Department Care Team Description 02/10/2025 Telephone [place] [address] [place] [address]. [place], [place] [id number] Telma Horowitz MD LAB RESULTS (/TSH, Free T4) from Last 3 Months Social History Tobacco Use Types Packs/Day Years Used Date Smoking Tobacco: Never Assessed Comments Unknown Sex and Gender Information Value Date Recorded Sex Assigned at Not on file Legal Sex Female 5:17 AM CDT Gender Identity Not on file Sexual Orientation Not on file Plan of Treatment Health Maintenance Due Date Last Done Comments Cervical Cancer Screening Due 1990 Hep C Screening (Preventive Services) 1990 HIV Screening (Preventive Services) 2006 Adult Preventive Visit 2008 DTaP/Tdap/Td Vaccine (1 - Tdap) 2009 HepB Vaccine (1) 2009 COVID-19 Vaccine (2023-2 5 season) 2024 Influenza Vaccine (Season Ended) 2025 Zoster/Shingles Vaccine (1 of 2) 2040 HPV Vaccine Aged Out No longer eligi ble based on patient's age to complete this topic HepA Vaccine Aged Out No longer eligi ble based on patient's age to complete this topic Hib Vaccine Aged Out No longer eligi ble based on patient's age to complete this topic IPV (Polio) Vaccine Aged Out No longe r eligible based on patient's age to complete this topic MCV4 Vaccine Aged Out No longer eligi ble based on patient's age to complete this topic Meningococcal B Vaccine Aged Out No l onger eligible based on patient's age to complete this topic Pneumococcal Vaccine Aged Out No long er eligible based on patient's age to complete this topic Insurance [facility] Care Teams Geospatial Program Management Officer Relationship Specialty Start Date End Date Unassigned, Provider [address] [place] [address] PCP - General 11/26/01
== END 2025-05-01 10:38 | disposition home or self-care (01) ==
LOC: US 10:37
PROVIDERS: Visit Provider Obstetrics & Gynecology
DX: O10.913 Unspecified pre-existing hypertension complicating pregnancy, third trimester (principal); Z3A.37 37 weeks gestation of pregnancy
CPT/HCPCS: 76819; 82565; 84450; 84460; 84520

== ENCOUNTER 2025-05-07 19:20 | Outpatient (CLI) | payer BC, SELFPAY ==
[2025-05-07] VITALS (8 sets, daily range): BP systolic 121–149; BP diastolic 73–91; PULSE 67–90; O2SAT 96–97
[2025-05-07 20:25] LABS: Hematocrit 35.2 % (33.0-51.0); Hemoglobin* 11.8 gm/dL (12.0-16.0); Mean Corpuscular HGB Conc 34 gm/dL (32-36); Mean Corpuscular Hemoglobin 31 pg (26-34); Mean Corpuscular Volume 92 fL (80-100); Red Blood Count 3.84 m/uL (4.00-5.20); White Blood Count* 8.84 K/uL (4.50-11.00)
[2025-05-07 20:28] LABS: Slide Review Reflex No
[2025-05-07 20:38] LABS: Protein Creatinine Ratio Urine 0.16 (0-0.19)
[2025-05-07 20:40] LABS: Alanine Aminotransferase* 18 U/L (4-35); Aspartate Amino Transferase* 42 U/L (12-35); Creatinine* 0.7 mg/dL (0.5-1.5); Est. Creatinine Clearance* 93.68; Estimated Glomerular Filt Rate 116 ml/min
--- NOTE | 2025-05-07 23:59 | PC.OBNST ---
NST Note NST Note Start: 05/07/25 19:25 Freq: ONCE Status: Discharge Protocol: Document 05/07/25 19:[address] [facility] (Rec: 05/07/25 23:[address] [facility] [id number]) NST Note 1 Para (# of births) 0 EDC 05/20/25 Gestational Age In 38 Weeks & 1 Days Weeks & Days High Risk Factors High Blood Pressure - Preexisting Patient Presented Other with Complaint(s) of Other Complaints elevated bp's at home Reactive Yes Appropriate for Yes Gestational Age RN SMalterer RN Date 05/07/25 Reactive Yes Appropriate for Yes Gestational Age RN APurfesst RN Date 05/07/25 OB NST charge Yes Complete NST Note Yes via Write Note The provider's electronic signature indicates the NST is reactive/appropriate for gestational age. *Note to provider: If an addendum is required, open the patient's chart and click on the note under the Nurse/Allied Health tab.
== END 2025-05-07 21:35 | disposition home or self-care (01) ==
LOC: OB OUT 19:21 → OB 19:22
PROVIDERS: Visit Provider Obstetrics & Gynecology
DX: O10.913 Unspecified pre-existing hypertension complicating pregnancy, third trimester (principal); Z3A.38 38 weeks gestation of pregnancy
CPT/HCPCS: 36415; 59025; 82565; 82570; 84156; 84450; 84460; 85027; G0463

== ENCOUNTER 2025-05-08 11:47 | Outpatient (CLI) | payer BC, SELFPAY ==
[2025-05-08] VITALS (11 sets, daily range): BP systolic 134–156; BP diastolic 70–89; PULSE 86–122; RESP 16; TEMP 36.8; O2SAT 96
[2025-05-08 12:34] LABS: Hematocrit 36.0 % (33.0-51.0); Hemoglobin* 12.1 gm/dL (12.0-16.0); Mean Corpuscular HGB Conc 34 gm/dL (32-36); Mean Corpuscular Hemoglobin 31 pg (26-34); Mean Corpuscular Volume 91 fL (80-100); Red Blood Count 3.94 m/uL (4.00-5.20); White Blood Count* 8.69 K/uL (4.50-11.00)
[2025-05-08 12:54] LABS: Slide Review Reflex No
[2025-05-08 12:56] LABS: Alanine Aminotransferase* 18 U/L (4-35); Aspartate Amino Transferase* 40 U/L (12-35); Blood Urea Nitrogen* 14 mg/dL (5-24); Creatinine* 0.6 mg/dL (0.5-1.5); Estimated Glomerular Filt Rate 121 ml/min
[2025-05-08 13:04] LABS: Protein Creatinine Ratio Urine 0.11 (0-0.19)
--- NOTE | 2025-05-08 15:05 | PC.OBNST ---
NST Note NST Note Start: 05/08/25 12:12 Freq: ONCE Status: Active Protocol: Document 05/08/25 15:03 [facility] (Rec: 05/08/25 15:05 [facility] [id number]) NST Note 1 Para (# of births) 0 EDC 05/20/25 Gestational Age In 38 Weeks & 2 Days Weeks & Days High Risk Factors High Blood Pressure - Gestational Patient Presented Other with Complaint(s) of Other Complaints blood pressure monitoring from clinic Reactive Yes Appropriate for Yes Gestational Age RN Percy RN Date 05/08/25 Reactive Yes Appropriate for Yes Gestational Age LEAH Bar RN Date 05/08/25 OB NST charge Yes Complete NST Note Yes via Write Note The provider's electronic signature indicates the NST is reactive/appropriate for gestational age. *Note to provider: If an addendum is required, open the patient's chart and click on the note under the Nurse/Allied Health tab.
== END 2025-05-08 15:05 | disposition home or self-care (01) ==
LOC: OB OUT 11:48 → OB 11:48
PROVIDERS: Obstetrics & Gynecology; Visit Provider Obstetrics & Gynecology
DX: O13.3 Gestational [pregnancy-induced] hypertension without significant proteinuria, third trimester (principal); Z3A.38 38 weeks gestation of pregnancy
CPT/HCPCS: 36415; 59025; 76819; 82565; 82570; 84156; 84450; 84460; 84520; 85027; G0463

== ENCOUNTER 2025-05-13 16:27 | Inpatient (IN) | payer BC, SELFPAY ==
[2025-05-13] VITALS (9 sets, daily range): BP systolic 123–158; BP diastolic 63–91; PULSE 80–111; RESP 16–18; TEMP 36.7; O2SAT 97; BMI 35.3
--- NOTE | 2025-05-13 17:51 | P.LDBA_ITS ---
Subjective History of Present Illness Time Seen by Provider: 17:51 Date Seen: 05/13/25 Narrative: Patient is being admitted to Labor and Delivery for IOL in the setting of CHTN. She is a 34 year old at 39 0/7 weeks gestation. Her full history and physical was dictated by Dr. ELLIS on 05/01/25. Please see this for details. Patient is very anxious. She admits that she did not monitor her BPs at home since her last clinic visit, she mainly focused on trying to relax and stimulate labor. States that baby had continued to move well, only sporadic contractions. She did continue to monitor for symptoms such as headaches, vision changes or pain in her upper abdomen and denies any OPERATIONS CONTROLLER irritability symptoms. She has continued utilizing PO Nifedipine ER 30mg BID. Feels ready to start IOL. Specific Issues/Plans G1 P 0 Partner: Adric? Baby: BOY! H&P completed by RHONDA on 05/01/25? Needs IOL informed consent signed, cervical check to finalize plan of IOL (05/13/25) at her 38th week appointment. # Chronic hypertension Started nifedipine ER 30mg daily on 03/28/25: Bp at home varies 118-151/69-93. 5 measurements of >/=140/90 at home, increased to Nifedipine 30mg BID on 04/17/25 EFW at 32 and 36 weeks Wkly BPP and preeclampsia labs starting at 32 weeks. testing form completed on 02/26/25. Elevated BP at 20w2d on 01/02/25 148/82 then 142/80: BP at home normal Baseline Preeclampsia labs: hgb 12.1, plts 335K, AST 29, ALT 18, BUN 10, Creat 0.5. Urine P/C 0.25. #Proteinuria * 01/06/25: 24hr urine protein 406.3mg * 01/14/2025: Nephrology: * Repeat 24hr urine protein and urine P/C in 2 months * Repeated on 02/20 and decreased: P/C ratio of 0.19 and 24 hr 247.5 * Daily home BP monitoring * Consider antihypertensive therapy if SBP 150s-160s. * Take a baby ASA daily. * FYI UPCR on 03/26 was 0.41, however difficult to say if this is truly SI PreE due to baseline proteinuria. Next 24 hour urine in April with Neph (prior to 37 weeks: 04/29). * Urine P/C on 04/03 = 0.60. I asked her to do her next 24 urine at 34 weeks to be ordered on 04/10. * 04/22/25: 418mg/24 hrs- stable- no indicative of preeclampsia * Delivery: 37-39.6 weeks #Hx hyperthyroid/Graves:?Currently in remission. Has been seeing a grass farm laborer. Consented for Lev 2 with MFM consult at 20w. Referral sent 10/08/2024. Declined on 11/07/2024. Labs at [facility]: TSH 1.7, Free T4 1.80, Free T3 3.9 11/18/24: TSH 1.12, FT4 1.25. Free T3 3.2 12/30/24: TSH1.52, FT4 0.99, Thyroxine 14.1 (4.5-11.7), FT3: 2.9. 02/26/25: TSH 1.010. FT4 1.11 (0.7-1.85), FT3 2.7. Nutrition Instructor in [place] 11/13/2024: Recommended thyroid function tests Q6 weeks. (Draw with labs on 04/23 per fleet administrator?) 04/24/25: TSH: 2.150 normal, FT4: 1.00 normal, Thyroxine and FT3: all normal # Rubella non-immune -PP vaccination needed ? Imaging:? 1. 1st trimester: 10/08/2024- SLIUP consistent with dating, anechoic cyst of left ovary 3.6x2.3x3.2cm?? 2. Anatomy scan: 01/02/2025: Vtx, post placenta w/o previa, 3 vessel cord. SDP 4.3cm. EFW 367gm, 13oz, 65%. Suboptimal view of LVOT, RVOT, 3 vessel view and 3 vessel-trachea view. All other anatomy appeared normal. USN to be done at 24 weeks to assess suboptimally viewed structures. ?? 3. 01/30/25: Vtx, SDP 7.1cm, EFW 800g, 1#12oz, 87%. BPD 72%, HC 67%, AC 75%, FL 72%. cardiac anatomy appears normal. 4. 5/21/25: EFW 2072g at 64%ile, AC 60%ile. MVP 6.2cm. 06/13 BPP. 5. 04/24/25: Vertex, SDP: 6.2 cm, BPD: 58th percentile, HC: 51 percentile, AC: 59 percentile, FL: 67 percentile. EFW: 2967 g, 60 percentile. BPP 8. COVID:??declined Flu:???declined Tdap: declines 32wk Mental Health:?PHQ-9 0; NEAL-7 0. 34wk hgb:?12 Pap: 10/03/2021-NILM, HPV neg? OB - Problem Based A/P Additional Plan (1) Chronic hypertension affecting : Status: Acute (2) Hyperthyroidism: Problem details: currently in remission Status: Acute (3) : Status: Acute Plan 1. Cervix unfavorable and station high, bedside US completed and vertex presentation confirmed. Recommend misoprostol at this point, will start vaginally per protocol. 2. Continuous monitoring due to CHTN. 3. Continue close monitoring of BPs, OPERATIONS CONTROLLER irritability symptoms. Admission labs pending. Will only repeat labs if there are concerns for severity. Continue PO Nifedipine ER 30mg BID. 4. GBS negative, no need for antibiotic prophylaxis. 5. Planning on epidural for pain management. Ok with IV pain meds overnight if needed. OB Exam Physical Exam Vital signs: Pulse BP Pulse Ox 111 H 153/91 H 97 05/13/25 17:31 05/13/25 17:31 05/13/25 17:03 Detailed Labor and Delivery Exam Patient Gravid: yes Dilation (cm): 1 Effacement (%): 50 Cervix position: posterior Consistency: soft Tachysystole: No Fetus (Single) Station: -3 Amniotic Membrane Status: intact Heart Rate Baseline: 140 Monitor Accelerations: Present Monitor Decelerations: None Wire Temperer Variability: Moderate (6-25)
[2025-05-13 18:25] LABS: Hematocrit 36.7 % (33.0-51.0); Hemoglobin* 12.4 gm/dL (12.0-16.0); Immature Granulocytes Abs Auto 0.02 K/uL (0.00-0.30); Immature Granulocytes Pct Auto 0.3 %; Lymphocytes Absolute Auto 1.90 K/uL (0.90-2.90); Mean Corpuscular HGB Conc 34 gm/dL (32-36); Mean Corpuscular Hemoglobin 31 pg (26-34); Mean Corpuscular Volume 92 fL (80-100); RDW Coefficient of Variation % 13.4 % (11.5-15.5); Red Blood Count 3.99 m/uL (4.00-5.20); White Blood Count* 7.53 K/uL (4.50-11.00)
[2025-05-13 18:33] LABS: Slide Review Reflex No
[2025-05-13 18:45] LABS: Alanine Aminotransferase* 19 U/L (4-35); Aspartate Amino Transferase* 33 U/L (12-35); Blood Urea Nitrogen* 14 mg/dL (5-24); Creatinine* 0.6 mg/dL (0.5-1.5); Est. Creatinine Clearance* 109.29; Estimated Glomerular Filt Rate 121 ml/min
[2025-05-14] VITALS (32 sets, daily range): BP systolic 100–143; BP diastolic 53–87; PULSE 64–113; RESP 16–20; TEMP 36.5–37.3; O2SAT 97–99
--- NOTE | 2025-05-14 09:30 | PM.OBPNL ---
Subjective Date Seen: 05/14/25 Narrative: Terri is a 34 yo G1 woman at 39 1/7 weeks' gestation here for IOL for chronic HTN on medication. OB Problem List: Chronic HTN, currently taking nifedipine ER 30 mg BID. Baseline proteinuria History of Graves' hyperthyroidism, most recently euthyroid and in remission Rubella non-immune Thus far, she has had 5 doses of vaginal Cytotec for cervical ripening. She is feeling her contractions. We discussed her plan at length. Objective Vital Signs: Last Vital Signs Temp 97.9 F 05/14/25 07:45 Pulse 84 05/14/25 09:12 Resp 18 05/14/25 07:45 BP 143/87 H 05/14/25 09:12 Pulse Ox 98 05/14/25 06:16 Comments: General: Pauses with contractions, difficulty with exam Cervical exam: 3.5 cm, 70%, -2 station, mid position, soft. vertex is palpable. tracing: Baseline 140, accelerations present, no decelerations, moderate variability. Contractions approximately every 3-4 minutes. Assessment Assessment: induction ongoing Station: -3 Status: Category l Heart Rate Baseline: 140 Monitor Accelerations: Present Monitor Decelerations: None Tracing Comments: GBS negative Labor Progress: now with favorable cervix Maternal Status: chronic hypertension on nifedipine ER 30 mg b.i.d.. Normotensive or with mild elevations of blood pressure. HELLP labs normal at admission on the evening of 05/13/2025. Plan Plan: I recommend induction of labor with IV oxytocin. Continuous monitoring. Epidural as desired.
[2025-05-14] MEDS: LACTATED RINGERS 1000 ML 1,000 ML 75 ML IV (14:26)
[2025-05-14] MEDS: OXYTOCIN 30 unit/500 ML in NS 30 UNIT/500 ML BAG IVPB (14:27)
[2025-05-15] VITALS (213 sets, daily range): BP systolic 94–150; BP diastolic 53–84; PULSE 59–107; RESP 16–18; TEMP 36.4–37.1; O2SAT 86–100
[2025-05-15] MEDS: LACTATED RINGERS 1000 ML 1,000 ML 75 ML IV ×2 (04:14→16:32)
[2025-05-15 06:33] LABS: Hematocrit 38.3 % (33.0-51.0); Hemoglobin* 12.8 gm/dL (12.0-16.0); Immature Granulocytes Abs Auto 0.04 K/uL (0.00-0.30); Immature Granulocytes Pct Auto 0.4 %; Lymphocytes Absolute Auto 2.08 K/uL (0.90-2.90); Mean Corpuscular HGB Conc 33 gm/dL (32-36); Mean Corpuscular Hemoglobin 31 pg (26-34); Mean Corpuscular Volume 92 fL (80-100); RDW Coefficient of Variation % 13.3 % (11.5-15.5); Red Blood Count 4.16 m/uL (4.00-5.20); White Blood Count* 9.20 K/uL (4.50-11.00)
[2025-05-15 06:36] LABS: Slide Review Reflex No
[2025-05-15] MEDS: ROPIVACAINE 0.2% 100 ml 100 ML 12 MG EPIDURAL ×2 (07:02→15:08)
[2025-05-15] MEDS: ROPIVACAINE 0.2 % PF 10 ML INJ 20 MG EPIDURAL (07:02)
[2025-05-15] MEDS: LIDOCAINE 2% (PF) 5 ML VIAL EPIDURAL (07:02)
--- NOTE | 2025-05-15 07:08 | PM.ANBPRC ---
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, one eye, unspecified eye (ICD-10) Graves disease ?E05.00 - Thyrotoxicosis with diffuse goiter without thyrotoxic crisis or storm (ICD-10) Hyperthyroidism ?E05.90 - Thyrotoxicosis, unspecified without thyrotoxic crisis or storm (ICD-10) Surgical History H/O eye surgery ?Z98.890 - Other specified postprocedural states (ICD-10) Family History Father Bladder cancer Mother Hypothyroid Social History What is your current living situation?: I presently have a place to live Problems where you live: no known problems In the past 12 months, utilities in danger of being shut off: no In past 12 months, lack of transportation kept you from medical appts, meetings, work, or getting things needed for daily living: no How hard is it for you to pay for the very basics like food, housing, medical care, and heating: not very hard In the past 12 mos, have been you worried that your food would run out before you had money to buy more?: never true In the past 12 mos, the food you bought just didn't last and you didn't have money to buy more?: never true Are you following a diet prescribed by a doctor: Yes Are you following a special diet: Yes Do you want help finding or keeping work or a job: I do not need or want help Smoking Status: Never smoker How often does anyone, including family, friends and others, physically hurt you: never How often does anyone, including family, friends and others, insult or talk down to you: never How often does anyone, including family, friends and others, threaten you with harm: never How often does anyone, including family, friends and others, scream or curse at you: never Meds Home Medications and Allergies Home Medications ?Medication ?Instructions ?Recorded ?Confirmed ?Type omega 0-xcq-rbm-fish oil 900 1 cap PO DAILY 10/08/24 05/13/25 History mg-1,400 mg capsule,delayed release (Fish Oil) vitamin#30 30 mg iron-10 1 cap PO DAILY 10/08/24 05/13/25 History mg iron-folic acid 1 mg-omg3 capsule selenium 200 mcg capsule 200 mcg PO QDAY 10/08/24 05/13/25 History aspirin 81 mg tablet,delayed 81 mg PO QDAY 01/14/25 05/13/25 History release magnesium glycinate 100 mg (as 100 mg PO BID 01/14/25 05/13/25 History glycinate) tablet calcium citrate 1,000 mg tablet 1,000 mg PO DAILY 02/14/25 05/13/25 History nifedipine 30 mg tablet,extended 30 mg PO BID 04/24/25 05/13/25 History release Allergies Allergy/AdvReac Type Severity Reaction Status Date / Time gluten Allergy Intermediate Unknown Verified 05/08/25 12:30 Results Labs Labs: Laboratory Results - last 24 hr 05/15/25 06:28 WBC 9.20 RBC 4.16 Hgb 12.8 Hct 38.3 MCV 92 MCH 31 MCHC 33 RDW Coeff of Lindsey 13.3 Plt Count 274 Neut % (Auto) 67.9 Lymph % (Auto) 22.6 Glades % (Auto) 8.2 Eos % (Auto) 0.8 Baso % (Auto) 0.1 Neut # (Auto) 6.25 Lymph # (Auto) 2.08 Glades # (Auto) 0.80 Eos # (Auto) 0.07 Baso # (Auto) 0.01 Abs Immat Gran (auto) 0.04 Imm/Tot Granulo (auto) 0.4 Vital Signs Vital Signs: Last Vital Signs Temp 97.6 F 05/15/25 04:35 Pulse 83 05/15/25 07:06 Resp 16 05/15/25 04:35 BP 114/71 05/15/25 07:06 Pulse Ox 99 05/15/25 07:04 Weight: 88.995 kg Height: 160.02 cm Anesthesia Procedures Epidural Insertion Patient Location: OB Start Time: 06:00 Stop Time: 07:08 Start Date: 05/15/25 Stop Date: 05/15/25 Reason for Block: procedure for pain Patient Position: sitting Performed By: Tyler Pinto Preanesthetic Checklist: IV checked, risks and benefits discussed, surgical consent, monitors and equipment checked, pre-op evaluation, timeout performed and anesthesia consent Prep: chlorhexidine gluconate Monitoring: blood pressure monitoring, continuous pulse oximetry and heart rate Approach: midline Vertebral Space: lumbar (1-5) Epidural Technique: CHARU air Needle Type: Tuohy needle Injection Technique: continuous catheter Needle gauge: 17 Needle Length (cm): 10 cm Needle Insertion Depth (cm): 7 Catheter Gauge: 19 Catheter Type: multi-orifice Catheter at skin depth (cm): 13 Test Dose Result: negative and lidocaine 1.5% with epinephrine 1 to 200,000
[2025-05-15] MEDS: PHENYLEPHRINE 100 MCG/ML SYRINGE IVP ×3 (08:49→12:21)
[2025-05-15] MEDS: LACTATED RINGERS 1000 ML 1,000 ML IV (09:11)
[2025-05-15] MEDS: ONDANSETRON 2 MG/ML inj 4 MG IV ×2 (09:35→19:46)
[2025-05-15] MEDS: AZITHROMYCIN 500 MG in 0.9 % SODIUM CHLORIDE 250 ml 250 ML 255 MG IVPB (19:31)
--- NOTE | 2025-05-15 19:37 | P.OBPN_ITS ---
Subjective Time Seen by Provider: 19:00 Date Seen: 05/15/25 Narrative: Subjective: The patient is comfortable with epidural. The Pitocin was discontinued at approximately 6:45 p.m. due to tachy systole and 3 late- appearing decelerations. The nurse checked the patient's cervix at that time and felt that there was no change in cervical dilation and the cervix felt edematous. The nurse asked me to confirm her cervical exam Vital signs: Per electronic medical record. EFM: Baseline 140 beats per minute. Accelerations: Present. Moderate variability. Decelerations: 3 late decelerations between 18:39 - 18:45pm. Category 2. IUPC: Q1-2 minutes prior to the Pitocin being discontinued. Rosalia units 190-240/10minutes for 2 hours. SVE: 6 cm/60 %/-1. With caput and edematous cervix. Exam at 5:00 p.m. was 6/80%/-1 with caput. Assessment: 34-year-old 1 para 0 at 39 weeks 3 days gestation arrest of dilation after attempted induction of labor due to chronic hypertension on medication. Plan: 1. Recommended primary low-transverse for arrest of dilation. 2. Do not restart Pitocin. 3. IUPC removed. 4. Epidural is working well for labor analgesia. 5. 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 6. Consent form reviewed and signed. PHYSICAL SCIENCES INSTRUCTOR and operating room staff notified of stable for arrest of dilation. 7. GBS negative. Blood type: A positive Objective Vital Signs: Last Vital Signs Temp 98.2 F 05/15/25 18:24 Pulse 67 05/15/25 19:34 Resp 18 05/15/25 16:30 BP 117/57 L 05/15/25 19:34 Pulse Ox 98 05/15/25 19:33 Assessment Station: -3 Status: Category l Heart Rate Baseline: 140 Monitor Accelerations: Present Monitor Decelerations: None
--- NOTE | 2025-05-15 19:48 | P.PCN_ITS ---
Procedure Note Time Seen by Provider: 00:01 Date Seen: 05/15/25 Date of procedure: 05/15/25 Will [facility] bill your pro fee for this procedure?: Yes Procedure: Preoperative diagnosis: 34-year-old 1 para 0 at 39 and 3/7 weeks with arrest of dilation Postoperative diagnosis: Same Procedure: Primary low-transverse section Anesthesia: Epidural Surgeon: Arely Hughes MD Assembly Line Robot Operator: Not applicable Quantitative blood loss: 528 mL IV Fluid: 600 mL UOP: 500 mL Specimen: Placenta to pathology due to chronic hypertension affecting . Drain(s): Hunter to gravity Findings: A live male infant was delivered from the ROT position at 11:22 p.m.. Apgars were 8 at 1 min and 9 at 5 min, respectively. Infant weight: 3390 g, 7 lb 8 oz. Nuchal cord(s): Yes, single, loose nuchal cord was reduced prior to d elivery of the 's shoulders at the surgical field. The placenta was delivered spontaneously and complete at 11:23 p.m.. Amniotic fluid: Light meconium-stained. Normal uterus, fallopian tubes and ovaries were noted. Other findings: None Procedure: Inga was taken to the OR where epidural anesthetic was found be adequate. A Hunter catheter was placed. The patient was then placed in the dorsal supine position with a leftward tilt. She was then prepped and draped in a normal sterile manner. A Pfannenstiel skin incision was made and carried through sharply to the underlying layer of fascia. Fascia was incised in the midline and this incision carried laterally with Lovett scissors. The superior aspect of fascial incision was grasped with Cullen clamps, tented up, and the rectus mu scles dissected off with a combination of blunt and sharp dissection. The inferior aspect of the fascial incision was grasped with Cullen clamps, tented up and again the rectus muscles dissected off with a combination of blunt and sharp dissection. The rectus muscles were in the midline. The peritoneum was entered bluntly. This opening was extended bluntly. An Al-O self-retaining retractor was placed. A bladder flap was not created. Uterus was incised in a low transverse manner in the midline. This incision carried laterally with blunt pressure on the inferior and superior aspects of the uterine incision. The amniotic sac was ruptured. The infant's head and body was delivered atraumatically. The infant was shown to the patient and her support person. The umbilical cord was clamped and cut after a 30-60 second delay. The was then handed to waiting pediatric and nursing staff. The placenta was delivered spontaneously. The uterus was cleared of clots and debris. The patient received 40 units Pitocin in 1 L IV fluid wide open and 1 g IV TXA after the placenta was delivered. The uterine incision was re- approximated with the uterus in vivo. The 1st layer using 0-Vicryl in a running, locked manner. The 2nd layer using 0-Monocryl in a running, vertical, imbricating layer. Additional sutures needed for hemostasis: No. Excellent hemostasis was verified. The Al retractor was removed. The rectus muscles and peritoneum were not reapproximated. The rectus muscles were then closely inspected to verify hemostasis. Hemostasis was obtained with bipolar cautery. The fascia was then re-approximated using 0-Maxon loop in a running manner. The subcutaneous tissue was then irrigated with saline and hemostasis obtained with bipolar cautery. The subcutaneous tissue was re- approximated using 3-0 plain gut in a running manner. The skin was reapproximated using 4-0 Monocryl in a running subcuticular manner. Exofin skin adhesive and a Mepilex dressing were applied. The patient tolerated this procedure well. Sponge, lap and instrument counts were correct x2 active to the procedure. Patient was taken to the recovery area in stable condition. The patient received 2 g of IV Ancef and 500 mg IV azithromycin prior to skin incision. Anesthesia: epidural Surgeon: Arely Hughes MD Estimated blood loss (mL): 528 IV fluids (mL): 600 Urine output (mL): 500 Pathology: specimen obtained, sent to pathology Condition: stable Disposition: floor
[2025-05-15] MEDS: CALCIUM CARBONATE 500 MG CHEW PO (19:53)
[2025-05-16] VITALS (22 sets, daily range): BP systolic 97–155; BP diastolic 64–93; PULSE 66–96; RESP 14–22; TEMP 36.4–37; O2SAT 93–100
[2025-05-16] MEDS: LACTATED RINGERS 1000 ML 1,000 ML 125 ML IV (00:30)
--- NOTE | 2025-05-16 00:33 | P.ANES_ITS ---
Anesthesia Charges Start Date/Time Anesthesia Start Date: 05/15/25 Anesthesia Start Time: 22:48 Stop Date/Time Anesthesia Stop Date: 05/16/25 Anesthesia Stop Time: 00:16 Summary Emergency: STEAK TENDERIZER MACHINE Coding CPT Codes CPT Codes: ANES/ANALG CS DELIVER ADD-ON - 72472 ([id number]) P2 - PATIENT W/MILD SYST DISEASE, QZ - STEAK TENDERIZER MACHINE SVC W/O BATH DESIGN SALES CONSULTANT BY Additional Codes: Summary - Emergency: STEAK TENDERIZER MACHINE ([id number])
--- NOTE | 2025-05-16 00:33 | W.ANESCHARGE ---
Anesthesia Charges Start Date/Time Anesthesia Start Date: 05/15/25 Anesthesia Start Time: 22:48 Stop Date/Time Anesthesia Stop Date: 05/16/25 Anesthesia Stop Time: 00:16 Summary Emergency: SPIN TABLE OPERATOR Coding CPT Codes CPT Codes: ANES/ANALG CS DELIVER ADD-ON - 22904 ([id number]) P2 - PATIENT W/MILD SYST DISEASE, QZ - SPIN TABLE OPERATOR SVC W/O FRONT DESK MANAGER BY Additional Codes: Summary - Emergency: SPIN TABLE OPERATOR ([id number])
--- NOTE | 2025-05-16 00:34 | W.PM.NB ---
Nerve Block Nerve Block Time Seen by Provider: 00:05 Date Seen: 05/16/25 Type of block requested by surgeon for post-operative analgesia: TAP Side: bilateral Time out performed: Yes Verification of patient name: Yes Verification of date of : Yes Name of person performing procedure: Rosa Suazo Continuous monitoring Was continuous monitoring of O2 sat, B/P, cardiac exercise physiologist, recorded every 15 minutes?: Yes Procedure Checklist: sterile prep, needles and gloves Ultrasound guided. Images saved: Yes Medications given in 5ml increments after negative aspiration: Marcaine %: 0.25 mL: 30 Needle gauge: 20 and Exparel mL: 10 Needle gauge: 20 Patient tolerated procedure well: Yes Block Charges Block Charge (with Pro Fee): TAP Bilateral Use of Ultrasound Machine for Block: Yes- US Guidance/pain block
[2025-05-16] MEDS: ACETAMINOPHEN 500 MG TABLET 1000 MG PO (05:19)
[2025-05-16 06:41] LABS: Hemoglobin* 10.1 gm/dL (12.0-16.0)
[2025-05-16 08:25] LABS: Hepatitis B Surface Antigen* Negative (Negative)
--- NOTE | 2025-05-16 15:38 | P.OBPN_ITS ---
OB - PN:Subj Subjective Date Seen: 05/16/25 Patient comments OB post-: no complaints Jewett status: and doing well feeding status: exclusively Narrative: Day 1:? Vaginal Delivery at 38 and 2/7 weeks.? ?? Complications:? none? Inga feels well.? Her pain is well controlled with current medications.? She has no new complaints.? Urinary output is adequate and she is voiding without difficulty.? Has a good appetite, is tolerating a general diet, is passing flatus, and has not had a bowel movement.? Has moderate amount of rubra lochia.? She is ambulating well.? OB - PN: Obj Exam Physical Exam: Vital signs: Temp Pulse Resp BP Pulse Ox O2 Del Method 97.6 F 66 16 133/87 100 Room Air 05/16/25 12:50 05/16/25 12:50 05/16/25 12:50 05/16/25 12:50 05/16/25 12:50 05/16/25 12:50 Narrative: GENERAL APPEARANCE:? normal affect, alert, no distress? MOOD:? appropriate? CHEST:? clear to auscultation and percussion? HEART:? regular rate and rhythm? ABDOMEN:? soft, non-tender the uterine fundus is firm and is appropriate for the stage of recovery. Incision dressing C/D/I.? PERINEUM:? intact.? EXTREMITIES:? normal and no edema? OB - PN: Obj Data Labs Labs: Laboratory Results - last 24 hr 05/16/25 06:04 Hgb 10.1 L Hep Bs Antigen Negative OB - PN: A/P Delivery Assessment and Plan (1) care and examination of lactating mother: Status: Acute Assessment and Plan: 34 year old on day 1. ? 1. cares.? 2. Anticipate discharge tomorrow.? 3. Continue to monitor BP and titrate Nifedipine as indicated. (2) Chronic hypertension affecting : Status: Acute (3) S/P primary low transverse : Status: Acute Plan day: 1 Plan: routine care
[2025-05-16 20:03] LABS: Hematocrit 33.3 % (33.0-51.0); Hemoglobin* 11.2 gm/dL (12.0-16.0); Immature Granulocytes Pct Auto 0.3 %; Mean Corpuscular HGB Conc 34 gm/dL (32-36); Mean Corpuscular Hemoglobin 31 pg (26-34); Mean Corpuscular Volume 93 fL (80-100); RDW Coefficient of Variation % 13.7 % (11.5-15.5); Red Blood Count 3.59 m/uL (4.00-5.20); White Blood Count* 15.26 K/uL (4.50-11.00)
[2025-05-16 20:23] LABS: Creatinine* 0.8 mg/dL (0.5-1.5); Est. Creatinine Clearance* 81.97; Estimated Glomerular Filt Rate 99 ml/min
[2025-05-16 20:24] LABS: Alanine Aminotransferase* 17 U/L (4-35); Aspartate Amino Transferase* 38 U/L (12-35)
[2025-05-16 20:26] LABS: Immature Granulocytes Abs Auto 0.00 K/uL (0.00-0.30); Lymphocytes Absolute Auto 2.00 K/uL (0.90-2.90); Slide Review Reflex No
[2025-05-17 01:00] VITALS: BP 144/48; PULSE 96; RESP 20; O2SAT 97
[2025-05-17 06:38] VITALS: BP 143/82; PULSE 110; RESP 20; O2SAT 97
[2025-05-17] MEDS: ACETAMINOPHEN 500 MG TABLET 1000 MG PO ×2 (08:35→14:55)
[2025-05-17] MEDS: LABETALOL HCL 100 MG TABLET 200 MG PO ×3 (08:37→20:20)
[2025-05-17 10:36] VITALS: BP 115/76; PULSE 87; RESP 17; TEMP 36.8; O2SAT 98
[2025-05-17] MEDS: IBUPROFEN 600 MG TABLET PO ×2 (12:26→18:27)
[2025-05-17 12:27] VITALS: BP 103/66; PULSE 86; RESP 17
--- NOTE | 2025-05-17 13:13 | P.DS_ITS ---
DS: Providers Provider Time Seen by Provider: 12:40 Date Seen: 05/17/25 Date of admission: 05/13/25 16:27 Primary care physician: Not a Local Provider Admitting Clinician: Sarah Natarajan MD Attending Physician on discharge: Arely Hughes MD Date of Discharge: 05/17/25 DS: Diagnosis Discharge Diagnosis (1) Generalized anxiety disorder: Status: Acute (2) S/P primary low transverse : Status: Acute Problem details: Boy. Mcghee. Apgars 8/9. 7#8oz Exam Narrative: Exam Narrative: GENERAL APPEARANCE: Pleasant, , well-groomed woman in no acute di stress. VITAL SIGNS: as noted in nursing notes HEAD: Normocephalic, atraumatic. THYROID: no masses, nodularity, tenderness or enlargement. LUNGS: Clear to auscultation bilaterally without wheezes, rales or rhonchi. HEART: Regular rate and rhythm with normal S1 and S2. No gallop, rub or murmur. ABDOMEN: Gravid. Soft, nontender, nondistended, with normal bowels sounds throughout. Fundus firm at 1 cm below the umbilicus in the midline. INCISION: Clean, dry and intact with sutures and skin adhesive gel. EXTREMITIES: No cyanosis, clubbing, or edema. No varicosities. NEUROLOGIC: Normal gait and balance. Normal deep tendon reflexes at bilateral patella 2+/2, equal without clonus. PSYCHIATRIC: alert and oriented x3. Normal speech pattern, eye contact and affect. SKIN: Warm, dry, and well perfused. Good turgor. No lesions, nodules or rashes. Const: Vital Signs, click to edit/add: Vital Signs - 24 hr 05/16/25 17:00 05/16/25 17:24 05/16/25 20:05 Temperature 98.4 F Pulse Rate [Pulse Oximeter] 73 Respiratory Rate 16 20 Blood Pressure [Ri ght Arm] 146/90 H 155/93 H 142/92 H Pulse Oximetry 97 97 Oxygen Delivery Me thod Room Air Room Air 05/16/25 21:10 05/17/25 01:00 05/17/25 06:38 Temperature 97.7 F Pulse Rate [Pulse Oximeter] 79 96 110 H Respiratory Rate 16 20 20 Blood Pressure [Ri ght Arm] 135/78 144/48 H 143/82 H Pulse Oximetry 99 97 97 Oxygen Delivery Me thod Room Air Room Air 05/17/25 10:36 05/17/25 12:27 Temperature 98.2 F Pulse Rate [Pulse Oximeter] 87 86 Respiratory Rate 17 17 Blood Pressure [Ri ght Arm] 115/76 103/66 Pulse Oximetry 98 Oxygen Delivery Me thod Room Air OB - DS: Summary Hospital Course Hospital Course: Inga is a 34 year old G 1 P 0 now 1 at 39 and 0/9 weeks gestation that was admitted to the Center on 05/13/25 for IOL. Arrest of dilation during induction of labor. She had an uncomplicated delivery. She delivered a viable male . She is breast feeding with some difficulty. the patient has had difficulty with anxiety. Feels her experience was traumatic. Had anxiety prior to delivery and her symptoms have been exacerbated. We discussed medication to help alleviate her symptoms. She is considering Zurzuvae. I reviewed that the most common side effect is drowsiness. This medication often requires a prior authorization for her insurance coverage but works well needs to be taken daily for 2 weeks. This is a positive for anti depression or anti anxiety medications as they typically need to be taken daily for at least 6 months. This is safe with . She has had some problems with the baby having difficulty with latching and has been working on that. I recommended that she not be discharged home until this evening long as her blood pressure remains normal over the course of the day. If her blood pressure is elevated again I would want her to stay overnight after her blood pressure medications are modified to make sure that she is responding well. Since her nifedipine was increased to 60 mg b.i.d. and labetalol 200 mg t.i.d. was added her blood pressure has been normal to low. I also will like to see her in the office on Monday for blood pressure check. She has a blood pressure cuff at home and has been checking her blood pressure on a daily basis. I would like her to continue to check her blood pressure daily and she will be given some parameters to contact you to the on-call physician or the clinic for high or low measurements. Peripartum Data Procedures: Procedures Operation Date: 05/15/25 21:20 Actual Procedure Side Surgeon p Primary Low Transverse Section Arely Hughes MD Ruby Infant Gender: Male Time Spent with Patient Time attestation: Total time spent providing and/or coordinating discharge services: Time spent: Less than 30 minutes Discharge Plan Discharge Disposition: Home, Self-Care Date of Admission: 05/13/25 16:27 Attending Provider on Discharge: Arely Hughes Consulting Providers: Molly Garrett Primary Care Provider: Provider,Not a Local Condition: Improved Anticipated Discharge Date/Time: 05/17/25 19:00 Discharge Medications: New nifedipine 30 mg Tablet Extended Release 60 mg PO BID Qty: 240 0RF ibuprofen 600 mg Tablet 600 mg PO Q6H PRN (Reason: Pain) Qty: 30 0RF labetalol 100 mg Tablet 200 mg PO TID Qty: 180 0RF oxycodone 5 mg Tablet 5 mg PO 3XD PRN (Reason: Pain) Qty: 21 0RF docusate sodium 100 mg Capsule 100 mg PO BID PRN (Reason: constipation) Qty: 100 0RF Continued Fish Oil 900-1,400 mg capsule,delayed release(DR/EC) 1 cap PO DAILY selenium 200 mcg capsule 200 mcg PO QDAY PNV #[id number] acid-omega3 30 mg iron-10 mg iron-1 mg capsule 1 cap PO DAILY magnesium glycinate 100 mg tablet 100 mg PO BID calcium citrate 1,000 mg tablet 1,000 mg PO DAILY Discontinued nifedipine 30 mg tablet extended release 30 mg PO BID aspirin 81 mg tablet,delayed release (DR/EC) 81 mg PO QDAY Discharge Orders: Discharge Order (Routine); Ordered 05/17/25 Ordered By: Arely Hughes Patient Education: Preeclampsia and Eclampsia After Delivery (GEN), (DC) Additional Instructions: ACTIVITY RESTRICTIONS: Lifting Restrictions: 20 pounds for 6 weeks Do not submerge incision under water X 2 weeks? Nothing vaginally for 6 weeks: no tampons or intercourse No driving while taking narcotic pain medication: 1-2 weeks No high impact or core exercises: 6 weeks Off Work or School for a minimum of 8 weeks NO RESTRICTIONS FOR: Walking Climbing stairs Being a passenger in a motor vehicle Symptoms to report to doctor: * Bleeding that saturates more than one pad per hour * Passing clots larger than the size of a golf ball * Pain not relieved by prescribed medication * Fever above 100.4 degrees Fahrenheit * A foul vaginal odor * Difficulty in emotions, mood, and functions * Thoughts of hurting yourself and/or * Painful, reddened area in your breast * Any drainage, redness, or tenderness in your IV/epidural site or incision * Severe headache that doesn't improve after taking medications * Changes in vision, including temporary loss of vision, blurred vision, and/or light sensitivity * Upper abdominal pain (usually under ribs on the right side) * Decrease in urination or painful, frequent urinating * Chest pain * Shortness of breath * Tenderness or pain with redness and/swelling in the calf(s) of your leg Blood Pressure Management: Take your BP at least 1x/day [facility] for a BP check?05/21/2025 Call the clinic at for BP >/= 140/90 or </= 90/60 for medication dose adjustment. Contact the clinic by telephone or portal message for Dr. Hughes if you want to start the anti-anxiety medication called Silvia. 1. Optional 2-week visit: incision check, discuss feeding concerns, review control options and screen for anxiety/depression. 2. 6-week visit for an annual exam. consultation services are available to all mothers and babies for the first year after delivery.? To make an appointment, please call [phone]. Activity Level: Other Discharge Diet: Regular Follow Up Appointments: Provider,Not a Local [Primary Care Provider, Family Practice] [facility] [Outside] Forms: [employer] Info Instructions
[2025-05-17 13:59] VITALS: BP 99/66; PULSE 82; RESP 17; TEMP 36.6; O2SAT 97
[2025-05-17 16:36] VITALS: BP 107/72; PULSE 82; RESP 17
== END 2025-05-17 20:33 | disposition home or self-care (01) | DRG 540 ==
PROVIDERS: Nurse Anesthetist, Certified Registered; Obstetrics & Gynecology; Admitting Provider Obstetrics & Gynecology; Visit Provider Obstetrics & Gynecology
PROC: 10D00Z1 Extraction of Products of Conception, Low, Open Approach (ICD-10-PCS; CPT 59514; principal; 2025-05-15 20:15)
DX: O10.92 Unspecified pre-existing hypertension complicating childbirth (principal); O76 Abnormality in fetal heart rate and rhythm complicating labor and delivery; O62.0 Primary inadequate contractions; G89.18 Other acute postprocedural pain; O99.344 Other mental disorders complicating childbirth; F41.1 Generalized anxiety disorder; Z28.39 Other underimmunization status; O99.284 Endocrine, nutritional and metabolic diseases complicating childbirth; E05.90 Thyrotoxicosis, unspecified without thyrotoxic crisis or storm; Z37.0 Single live birth; Z3A.39 39 weeks gestation of pregnancy
CPT/HCPCS: 01967; 01968; 36415; 59200; 64488; 76815; 76942; 82565; 84450; 84460; 84520; 85018; 85025; 86592; 86850; 86900; 86901; 87340; 88307; 99140; A9270; J0456; J0665; J0666; J0690; J1885; J2405; J2590; J2795; J3010; J7050; J7120

== ENCOUNTER 2025-07-01 10:35 | Outpatient (CLI) | payer BC, SELFPAY | END 2025-07-01 10:36 | disposition home or self-care (01) | PROVIDERS: Visit Provider Physician Assistant | DX: O10.93 Unspecified pre-existing hypertension complicating the puerperium (principal) | CPT/HCPCS: 82565; 84443; 84450; 84460; 84520 ==